=== PATIENT | female | born 1955 ===

== ENCOUNTER 2019-07-25 11:15 | Inpatient (IN) | payer OTHER ==
[~2019-07-25] VITALS: Ht 152.4 cm; Wt 61.2 kg
[2019-07-25] MEDS ORDERED: ENALAPRIL MALEAT5 MG PO (13:24)
[2019-07-25] MEDS ORDERED: TIROSINT25 MCG PO (13:24)
[2019-07-25] MEDS ORDERED: PROTONIX40 M1 PO (13:25)
[2019-07-25] MEDS ORDERED: ZANTAC300 MG PO (13:25)
[2019-07-25] MEDS ORDERED: DICYCLOMINE HCL20 MG PO (13:26)
[2019-08-13] MEDS ORDERED: HYOSCYAMINE0.125 M1 SL (15:17)
[2019-08-13] MEDS ORDERED: OXYC1TAB9 PO (15:17)
== END 2019-08-13 16:30 | disposition home or self-care (01) | DRG 331 ==
LOC: O/R 11:15 → SURH 07-27 11:15 → O/R 08-10 06:05 → SURH 08-10 06:05
PROVIDERS: ADMIT Surgery
PROC: 0DJD8ZZ Inspection of Lower Intestinal Tract, Via Natural or Artificial Opening Endoscopic (ICD-10-PCS; 2019-08-10)
PROC: 0DTN4ZZ Resection of Sigmoid Colon, Percutaneous Endoscopic Approach (ICD-10-PCS; principal; 2019-08-10 07:00)
DX: K57.32 Diverticulitis of large intestine without perforation or abscess without bleeding (principal); K57.30 Diverticulosis of large intestine without perforation or abscess without bleeding; K62.4 Stenosis of anus and rectum

== ENCOUNTER → 2021-05-09 | Day surgery (SDC) | payer OTHER ==
[~2021-05-09] MED LIST: DICYCLOMINE HCL20 MG PO; ENALAPRIL MALEAT5 MG PO; HYOSCYAMINE0.125 M1 SL; OXYC1TAB9 PO; PROTONIX40 M1 PO; TIROSINT25 MCG PO; ZANTAC300 MG PO
== END | disposition home or self-care (01) ==
LOC: ADM 05-02 14:30 → AMB-ENDOS 09:14
PROVIDERS: ATTEND Surgery
DX: K63.5 Polyp of colon (principal); K64.4 Residual hemorrhoidal skin tags; Z20.822 Contact with and (suspected) exposure to COVID-19